=== PATIENT | male | born 1985 ===

== ENCOUNTER → 2021-07-16 | Outpatient (REF) | payer BC ==
[2021-07-16 08:37] LABS: SEMEN APPEARANCE OPAQUE (OPAQUE); SEMEN VISCOSITY VISCOUS (LIQUID); SEMEN VOLUME 1.5 ml (2.0-5.0); SPERM CONCENTRATION 36.2 M/ml (>=15.0); WBC CONCENTRATION >1 M/ml (<=1 M/ml)
== END ==
LOC: M SFHCWAGY 08:18
PROVIDERS: ATTEND Specialist
DX: Z31.41 Encounter for fertility testing (principal)